=== PATIENT | male | born 1985 | race Caucasian/White ===

== ENCOUNTER 2017-10-21 14:54 | Emergency (ER) | payer BC ==
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
== END 2017-10-21 15:29 | disposition home or self-care (01) ==
LOC: JD.ED 14:54
DX: F10.20 Alcohol dependence, uncomplicated (principal); F17.210 Nicotine dependence, cigarettes, uncomplicated
CPT/HCPCS: 99283; 99284